=== PATIENT | female | born 1985 | race Caucasian/White ===

== ENCOUNTER 2017-01-11 19:56 | Emergency (ER) | payer SELFPAY ==
[2017-01-11] MEDS ORDERED: Bacitracin Zinc 1 Packet ONE (20:22)
[2017-01-12] MEDS ORDERED: Metoclopramide HCl 10 MG/2 ML VIAL ONE (03:42)
== END 2017-01-11 20:30 | disposition home or self-care (01) ==
LOC: ERS 19:56
DX: S80.811A Abrasion, right lower leg, initial encounter (principal); F17.210 Nicotine dependence, cigarettes, uncomplicated; W26.8XXA Contact with other sharp object(s), not elsewhere classified, initial encounter
CPT/HCPCS: 99282

== ENCOUNTER 2017-04-29 09:37 | Emergency (ER) | payer SELFPAY ==
[2017-04-29 10:14] LABS: Bilirubin Negative (Negative); Blood, Urine Negative (Negative); Clarity CLOUDY (Clear); Glucose, Urine (Dipstick) Negative (Negative); Leukocyte Large (Negative); Protein, Urine (Dipstick) Negative (Neg-Trace); Specific Gravity, Urine 1.011 (1.002-1.036)
[2017-04-29 10:16] LABS: Hyaline Casts/LPF 0-3 HYALINE CAST LPF (0-3 Hyaline); Pathc Cast-AUWi Flag 0.27 (0-2.49); Pregnancy Test - Urine (BHCG) Negative (Negative); Pregu Control Background? CLEAR/WHITE (CLR/WHITE); Pregu Control Bar Appear? YES (CONTROL BAR); RBC/HPF 0-3 HPF (0-3); Specific Gravity 1.011 (1.002-1.036)
[2017-04-29 10:17] LABS: Yeast-AUWi Flag 132.6 (0-25.0)
[2017-04-29 10:26] LABS: Nitrite Unable to Interpret (Negative)
[2017-04-29 10:34] LABS: Bacteria/HPF 1+ HPF (None Seen); Yeast-All Forms None Seen HPF (None Seen)
--- NOTE | 2017-04-29 11:08 | RAD ---
CHEST ONE VIEW: History: 31-year-old female with history of cough, fever, and congestion. FINDINGS: Mild S-shaped scoliosis of the thoracolumbar vertebral column. Heart size is normal. Bilateral nipple shadows are noted. IMPRESSION: No acute intrathoracic disease. No evidence for pneumonia. POS: [facility]
== END 2017-04-29 11:25 | disposition home or self-care (01) ==
LOC: ERS 09:37
DX: J06.9 Acute upper respiratory infection, unspecified (principal); N39.0 Urinary tract infection, site not specified; F31.9 Bipolar disorder, unspecified; F17.210 Nicotine dependence, cigarettes, uncomplicated; Z79.899 Other long term (current) drug therapy
CPT/HCPCS: 71045; 81003; 81015; 81025